=== PATIENT | female | born 1935 | race Caucasian/White ===

== ENCOUNTER 2022-09-14 21:24 | Inpatient (IN) | payer MEDICARE ==
[2022-09-14] MEDS ORDERED: Sodium Chloride 0.9% 1,000 ML IV SCH ×3 (21:30→21:45)
[2022-09-14] MEDS ORDERED: Acetaminophen 1,000 MG in Premix Bag 1 BAG IV ONE (21:31)
[2022-09-14 21:41] LABS: BASOPHILS PERCENT AUTO 0.2 % (0.1-1.3); EOSINOPHILS ABSOLUTE AUTO 0.02 K/uL (0.00-0.40); EOSINOPHILS PERCENT AUTO 0.2 % (0.0-5.4); HEMATOCRIT 34.4 % (34.3-46.0); HEMOGLOBIN 10.9 g/dL (11.2-15.5); IMMATURE GRAN ABSOLUTE AUTO 0.07 K/uL (0.00-0.23); IMMATURE GRAN PERCENT AUTO 0.6 % (0.0-0.7); LYMPHOCYTES ABSOLUTE AUTO 1.01 K/uL (0.8-3.3); LYMPHOCYTES PERCENT AUTO 8.2 % (11.4-47.7); MEAN CORPUSCULAR HEMOGLOBIN 29.8 pg (31.6-35.5); MEAN CORPUSCULAR HGB CONC 31.7 g/dL (31.6-35.5); MONOCYTES ABSOLUTE AUTO 1.99 K/uL (0.20-0.90); MONOCYTES PERCENT AUTO 16.1 % (3.3-12.6); NEUTROPHILS ABSOLUTE AUTO 9.22 K/uL (1.0-7.6); NEUTROPHILS PERCENT AUTO 74.7 % (40.0-78.1); PLATELET COUNT,PLT 171 K/uL (130-375); RED BLOOD CELL COUNT 3.66 M/uL (3.77-5.24); WHITE BLOOD CELL COUNT,WBC 12.3 K/uL (3.2-11.0)
[2022-09-14 21:42] LABS: BASOPHILS ABSOLUTE AUTO 0.02 K/uL (0.00-0.10)
[2022-09-14 21:59] LABS: BASE EXCESS ARTERIAL 1.1 mm/L; BICARBONATE,ARTERIAL 25.3 mmol/L (22.0-26.0); CARBOXYHEMOGLOBIN 1.5 % (0.0-1.6); O2 SATURATION ARTERIAL 93.3 % (95.0-98.0); PCO2 ARTERIAL 41.1 mmHg (35.0-42.0); PO2 ARTERIAL 69.1 mmHg (75.0-100.0); TOTAL HEMOGLOBIN 10.9 g/dL (12.0-16.0)
[2022-09-14 22:12] LABS: A/G RATIO 0.8 (1.2-2.2); ALANINE AMINOTRANSFERASE,ALT 15 U/L (12-78); ALBUMIN 2.6 g/dL (3.4-5.0); ALKALINE PHOSPHATASE 87 U/L (46-116); ANION GAP 6.5 mmol/L (5.0-14.0); ASPARTATE AMNIOTRANSFERASE,AST 20 U/L (15-37); BILIRUBIN TOTAL 0.4 mg/dL (0.2-1.0); BLOOD UREA NITROGEN,BUN 23 mg/dL (7-18); C-REACTIVE PROTEIN 4.57 mg/dL (0.0-0.3); CALCIUM 8.1 mg/dL (8.5-10.1); CARBON DIOXIDE,CO2 29 mmol/L (21-32); CHLORIDE,CL 105 mmol/L (100-108); CREATININE 1.3 mg/dL (0.6-1.0); EST CRCL DRUG DOSING (CG) 22.31 mL/min; ESTIMATED GFR 40 mL/min (>60); GLUCOSE RANDOM 148 mg/dL (74-106); POTASSIUM,K 4.3 mmol/L (3.6-5.2); SODIUM,NA 140 mmol/L (140-148)
[2022-09-15] MEDS: Levofloxacin/Dextrose 5%-Water 750 MG in Premix Bag 1 BAG IV SCH ×2
[2022-09-15] MEDS: Norepinephrine Bit/D5W Premix 4 MG in Premix Bag 1 BAG IV SCH (00:19)
[2022-09-15] MEDS ORDERED: Enoxaparin 30 MG/0.3 ML Syringe SUBCUT SCH (01:18)
[2022-09-15] MEDS ORDERED: Ondansetron 4 MG/2 ML SDV IV PRN (01:18)
[2022-09-15] MEDS ORDERED: Ondansetron 4 MG Tab.DIS PO PRN (01:18)
[2022-09-15] MEDS ORDERED: Albuterol 0.083% 2.5 MG/3 ML Neb Soln NEB PRN (01:18)
[2022-09-15] MEDS ORDERED: HYDROmorphone 0.5 MG/0.5 ML Syringe IVPUSH PRN (01:18)
[2022-09-15] MEDS ORDERED: Sodium Chloride 0.9% 1,000 ML IV SCH ×2 (01:18→12:00)
[2022-09-15] MEDS ORDERED: Sennosides/Docusate Sodium 50-8.6 MG Tab PO PRN (01:18)
[2022-09-15] MEDS ORDERED: Magnesium Hydroxide 400 MG/5 ML Susp 30 ML Cup PO PRN (01:18)
[2022-09-15] MEDS: cefTRIAXone 1 GM in Sodium Chloride 0.9% 50 ML IV SCH ×2 (01:36→23:27)
[2022-09-15] MEDS: Melatonin 3 MG Tab PO SCH ×2 (01:46→20:36)
[2022-09-15] MEDS: Acetaminophen/HYDROcodone 325-5 MG Tab PO PRN ×2 (02:01→20:23)
[2022-09-15 05:49] LABS: HEMOGLOBIN 10.8 g/dL (11.2-15.5); MEAN CORPUSCULAR HEMOGLOBIN 29.8 pg (31.6-35.5); MEAN CORPUSCULAR HGB CONC 31.8 g/dL (31.6-35.5); MEAN CORPUSCULAR VOLUME 93.9 fL (81.4-99.0); RED BLOOD CELL COUNT 3.62 M/uL (3.77-5.24); WHITE BLOOD CELL COUNT,WBC 20.1 K/uL (3.2-11.0)
[2022-09-15 06:10] LABS: CALCIUM 7.9 mg/dL (8.5-10.1); CREATININE 1.2 mg/dL (0.6-1.0); EST CRCL DRUG DOSING (CG) 24.17 mL/min; POTASSIUM,K 4.1 mmol/L (3.6-5.2)
[2022-09-15 06:11] LABS: ANION GAP 13.1 mmol/L (5.0-14.0)
[2022-09-15] MEDS: Levothyroxine 100 MCG Tab PO SCH (08:28)
[2022-09-15] MEDS: Aspirin 81 MG Tab.EC PO SCH (08:29)
[2022-09-15] MEDS: DULoxetine 30 MG Cap PO SCH (08:29)
[2022-09-15] MEDS: Sennosides/Docusate Sodium 50-8.6 MG Tab PO SCH ×2 (08:29→20:34)
[2022-09-15] MEDS: Polyethylene Glycol 3350 Powder 17 GM Packet PO SCH (08:29)
[2022-09-15] MEDS: Gabapentin 100 MG Cap PO SCH ×2 (08:29→20:34)
[2022-09-15] MEDS: Lactobacillus Rhamnosus GG (Probiotic) Cap PO SCH ×2 (08:29→20:35)
[2022-09-15] MEDS: Diclofenac Sodium 1% Gel 100 GM Tube TOP SCH ×2 (08:30→20:37)
[2022-09-15] MEDS: FENTANYL PATCH CHECK TOP SCH ×2 (10:08→20:39)
[2022-09-15] MEDS ORDERED: fentaNYL 25 MCG/HR Transdermal Patch TRDERM SCH (17:00)
[2022-09-15] MEDS: Pramipexole 0.5 MG Tab PO SCH (20:34)
[2022-09-15] MEDS: atorvaSTATin 20 MG Tab PO SCH (20:35)
[2022-09-15] MEDS: Enoxaparin 30 MG/0.3 ML Syringe SUBCUT SCH (21:26)
[2022-09-16 05:23] LABS: HEMATOCRIT 33.3 % (34.3-46.0); HEMOGLOBIN 10.6 g/dL (11.2-15.5); MEAN CORPUSCULAR HEMOGLOBIN 30.3 pg (31.6-35.5); MEAN CORPUSCULAR HGB CONC 31.8 g/dL (31.6-35.5); MEAN CORPUSCULAR VOLUME 95.1 fL (81.4-99.0); RED BLOOD CELL COUNT 3.5 M/uL (3.77-5.24); WHITE BLOOD CELL COUNT,WBC 12.6 K/uL (3.2-11.0)
[2022-09-16] MEDS: Norepinephrine Bit/D5W Premix 4 MG in Premix Bag 1 BAG IV SCH (05:32)
[2022-09-16 05:42] LABS: CALCIUM 8.2 mg/dL (8.5-10.1); CREATININE 1.2 mg/dL (0.6-1.0); EST CRCL DRUG DOSING (CG) 24.17 mL/min
[2022-09-16] MEDS: Levothyroxine 100 MCG Tab PO SCH (08:22)
[2022-09-16] MEDS: Aspirin 81 MG Tab.EC PO SCH (08:24)
[2022-09-16] MEDS: Lactobacillus Rhamnosus GG (Probiotic) Cap PO SCH ×2 (08:24→20:46)
[2022-09-16] MEDS: DULoxetine 30 MG Cap PO SCH (08:25)
[2022-09-16] MEDS: Polyethylene Glycol 3350 Powder 17 GM Packet PO SCH (08:26)
[2022-09-16] MEDS: Gabapentin 100 MG Cap PO SCH ×2 (08:26→20:45)
[2022-09-16] MEDS: FENTANYL PATCH CHECK TOP SCH ×2 (08:27→20:46)
[2022-09-16] MEDS: Sennosides/Docusate Sodium 50-8.6 MG Tab PO SCH ×2 (08:28→20:46)
[2022-09-16] MEDS: Diclofenac Sodium 1% Gel 100 GM Tube TOP SCH ×2 (08:30→20:47)
[2022-09-16] MEDS: Acetaminophen 325 MG Tab PO PRN (13:33)
[2022-09-16] MEDS: Acetaminophen/HYDROcodone 325-5 MG Tab PO PRN (17:13)
[2022-09-16] MEDS: Melatonin 3 MG Tab PO SCH (20:45)
[2022-09-16] MEDS: Pramipexole 0.5 MG Tab PO SCH (20:45)
[2022-09-16] MEDS: atorvaSTATin 20 MG Tab PO SCH (20:46)
[2022-09-16] MEDS: Levofloxacin/Dextrose 5%-Water 750 MG in Premix Bag 1 BAG IV SCH (22:00)
[2022-09-16] MEDS: Enoxaparin 30 MG/0.3 ML Syringe SUBCUT SCH (22:00)
[2022-09-16] MEDS: cefTRIAXone 1 GM in Sodium Chloride 0.9% 50 ML IV SCH (22:00)
[2022-09-17 05:25] LABS: HEMATOCRIT 32.1 % (34.3-46.0); HEMOGLOBIN 10.2 g/dL (11.2-15.5); MEAN CORPUSCULAR HEMOGLOBIN 29.8 pg (31.6-35.5); MEAN CORPUSCULAR HGB CONC 31.8 g/dL (31.6-35.5); MEAN CORPUSCULAR VOLUME 93.9 fL (81.4-99.0); RED BLOOD CELL COUNT 3.42 M/uL (3.77-5.24); WHITE BLOOD CELL COUNT,WBC 8.7 K/uL (3.2-11.0)
[2022-09-17 05:40] LABS: ANION GAP 6.3 mmol/L (5.0-14.0); CALCIUM 8.4 mg/dL (8.5-10.1); EST CRCL DRUG DOSING (CG) 29.01 mL/min; POTASSIUM,K 3.8 mmol/L (3.6-5.2)
[2022-09-17] MEDS: Levothyroxine 100 MCG Tab PO SCH (07:38)
[2022-09-17] MEDS: Acetaminophen 325 MG Tab PO PRN (08:05)
[2022-09-17] MEDS: Lactobacillus Rhamnosus GG (Probiotic) Cap PO SCH (08:41)
[2022-09-17] MEDS: DULoxetine 30 MG Cap PO SCH (08:41)
[2022-09-17] MEDS: Polyethylene Glycol 3350 Powder 17 GM Packet PO SCH (08:42)
[2022-09-17] MEDS: Gabapentin 100 MG Cap PO SCH (08:42)
[2022-09-17] MEDS: Aspirin 81 MG Tab.EC PO SCH (08:42)
[2022-09-17] MEDS: Sennosides/Docusate Sodium 50-8.6 MG Tab PO SCH (08:42)
[2022-09-17] MEDS: FENTANYL PATCH CHECK TOP SCH (08:43)
[2022-09-17] MEDS: Diclofenac Sodium 1% Gel 100 GM Tube TOP SCH (10:12)
== END 2022-09-17 13:15 | DRG 871 ==
LOC: JP.ED 21:24 → JP.ICU 09-15 00:19
PROVIDERS: ADMIT Internal Medicine; ATTEND Internal Medicine
PROC: 3E03329 Introduction of Other Anti-infective into Peripheral Vein, Percutaneous Approach (ICD-10-PCS; principal; 2022-09-15)
PROC: 3E033XZ Introduction of Vasopressor into Peripheral Vein, Percutaneous Approach (ICD-10-PCS; 2022-09-15)
DX: A41.9 Sepsis, unspecified organism (principal); J18.9 Pneumonia, unspecified organism; R65.21 Severe sepsis with septic shock; J96.01 Acute respiratory failure with hypoxia; G30.9 Alzheimer's disease, unspecified; E78.00 Pure hypercholesterolemia, unspecified; E03.9 Hypothyroidism, unspecified; G89.29 Other chronic pain; F32.A Depression, unspecified; M19.90 Unspecified osteoarthritis, unspecified site; F02.80 Dementia in other diseases classified elsewhere, unspecified severity, without behavioral disturbance, psychotic disturbance, mood disturbance, and anxiety; Z96.659 Presence of unspecified artificial knee joint; I25.10 Atherosclerotic heart disease of native coronary artery without angina pectoris; I10 Essential (primary) hypertension; Z66 Do not resuscitate; Z79.82 Long term (current) use of aspirin; Z79.899 Other long term (current) drug therapy; Z98.890 Other specified postprocedural states; Z79.890 Hormone replacement therapy
CPT/HCPCS: 36415; 36600; 71045; 71045-26; 80048; 80053; 82803; 83605; 85025; 85027; 86140; 87040; 94640; 96361; 96365; 99223; 99233; 99238; 99285; 99285-25; A9270-GY; J0131; J0696; J1650; J1956; J3490; J7030; U0002

== ENCOUNTER 2023-06-17 20:15 | Emergency (ER) | payer MEDICARE ==
[2023-06-17 20:59] LABS: BASOPHILS ABSOLUTE AUTO 0.03 K/uL (0.00-0.10); BASOPHILS PERCENT AUTO 0.2 % (0.1-1.3); EOSINOPHILS PERCENT AUTO 0.1 % (0.0-5.4); HEMATOCRIT 39.6 % (34.3-46.0); HEMOGLOBIN 12.8 g/dL (11.2-15.5); IMMATURE GRAN ABSOLUTE AUTO 0.08 K/uL (0.00-0.23); IMMATURE GRAN PERCENT AUTO 0.6 % (0.0-0.7); LYMPHOCYTES ABSOLUTE AUTO 1.02 K/uL (0.8-3.3); LYMPHOCYTES PERCENT AUTO 8.3 % (11.4-47.7); MEAN CORPUSCULAR HEMOGLOBIN 30.3 pg (31.6-35.5); MEAN CORPUSCULAR HGB CONC 32.3 g/dL (31.6-35.5); MEAN CORPUSCULAR VOLUME 93.6 fL (81.4-99.0); MONOCYTES ABSOLUTE AUTO 1.91 K/uL (0.20-0.90); MONOCYTES PERCENT AUTO 15.5 % (3.3-12.6); NEUTROPHILS ABSOLUTE AUTO 9.29 K/uL (1.0-7.6); NEUTROPHILS PERCENT AUTO 75.3 % (40.0-78.1); PLATELET COUNT,PLT 163 K/uL (130-375); RED BLOOD CELL COUNT 4.23 M/uL (3.77-5.24); WHITE BLOOD CELL COUNT,WBC 12.3 K/uL (3.2-11.0)
[2023-06-17 21:01] LABS: EOSINOPHILS ABSOLUTE AUTO 0.01 K/uL (0.00-0.40)
[2023-06-17 21:20] LABS: A/G RATIO 0.9 (1.2-2.2); ALANINE AMINOTRANSFERASE,ALT 18 U/L (12-78); ALBUMIN 3.3 g/dL (3.4-5.0); ALKALINE PHOSPHATASE 94 U/L (46-116); ANION GAP 11.1 mmol/L (5.0-14.0); ASPARTATE AMNIOTRANSFERASE,AST 17 U/L (15-37); BILIRUBIN TOTAL 0.5 mg/dL (0.2-1.0); BLOOD UREA NITROGEN,BUN 27 mg/dL (7-18); C-REACTIVE PROTEIN 4.18 mg/dL (<0.50); CALCIUM 8.9 mg/dL (8.5-10.1); CARBON DIOXIDE,CO2 26 mmol/L (21-32); CHLORIDE,CL 106 mmol/L (100-108); CREATININE 1.4 mg/dL (0.6-1.0); EST CRCL DRUG DOSING (CG) 22.39 mL/min; ESTIMATED GFR 36 mL/min (>60); GLUCOSE RANDOM 170 mg/dL (74-106); POTASSIUM,K 4.1 mmol/L (3.6-5.2); PROTEIN TOTAL,TP 7.1 g/dL (6.4-8.2); SODIUM,NA 143 mmol/L (140-148)
[2023-06-17 21:36] LABS: CORONAVIRUS COVID-19 NAA NEGATIVE (NEGATIVE); INFLUENZA A NAA NEGATIVE (NEGATIVE); INFLUENZA B NAA NEGATIVE (NEGATIVE); RESPIRATORY SYNCYTIAL VIR NAA NEGATIVE (NEGATIVE)
[2023-06-17] MEDS: Sodium Chloride 0.9% 1,000 ML IV ONE (22:56)
[2023-06-18] MEDS: Sodium Chloride 0.9% 1,000 ML IV ONE ×2 (00:05→02:09)
[2023-06-18 00:39] LABS: APPEARANCE,URINE CLEAR (CLEAR); BILIRUBIN,URINE NEGATIVE (NEGATIVE); COLOR,URINE YELLOW (YELLOW); GLUCOSE,URINE NEGATIVE (NEGATIVE); KETONES,URINE NEGATIVE (NEGATIVE); LEUKOCYTE ESTERASE,URINE NEGATIVE (NEGATIVE); NITRITE,URINE NEGATIVE (NEGATIVE); OCCULT BLOOD,URINE NEGATIVE (NEGATIVE); PROTEIN,URINE 30 mg/dL (NEGATIVE); UROBILINOGEN,URINE 0.2 EU/dL (0.2-1.0)
[2023-06-18 00:42] LABS: AMORPHOUS SEDIMENT,URINE NOT SEEN; BACTERIA,URINE FEW; EPITHELIAL CELLS,URINE FEW; MUCUS,URINE RARE; RBC,URINE 0-5 (0-5); WBC,URINE 0-5 (0-5)
[2023-06-18] MEDS: cefTRIAXone 1 GM in Sodium Chloride 0.9% 50 ML IV ONE (01:47)
[2023-06-18] MEDS: Norepinephrine Bit/D5W Premix 4 MG in Premix Bag 1 BAG IV SCH (03:33)
== END 2023-06-18 08:19 ==
LOC: JP.ED 20:15
DX: A41.9 Sepsis, unspecified organism (principal); R65.21 Severe sepsis with septic shock; I95.9 Hypotension, unspecified; I25.10 Atherosclerotic heart disease of native coronary artery without angina pectoris; I10 Essential (primary) hypertension; E78.00 Pure hypercholesterolemia, unspecified; Z86.73 Personal history of transient ischemic attack (TIA), and cerebral infarction without residual deficits; Z79.899 Other long term (current) drug therapy; Z79.82 Long term (current) use of aspirin
CPT/HCPCS: 0241U; 36415; 71045; 80053; 81001; 85025; 86140; 87040; 96365; 96366; 96367; 99285; C1758; J0696; J3490; J7030